=== PATIENT | female | born 1945 | race Caucasian/White ===

== ENCOUNTER 2017-01-20 18:32 | Emergency (ER) | payer OTHER ==
[~2017-01-20 18:32] MED LIST: ALLEGRA180 PO; ASAB PO; BIOTIN5 MG PO; CRESTOR10 PO; KLOR-CON 1010 MEQ PO; NORV5 PO; OS500+D PO; PREM.3B PO; PRIN20 PO; PROTONIX PO; THERGRANM PO; TOPXL50 PO; ZESTORETIC PO
== END 2017-01-20 19:44 | disposition home or self-care (01) ==
LOC: ER 18:32
DX: S09.90XA Unspecified injury of head, initial encounter (principal); S80.02XA Contusion of left knee, initial encounter; S80.01XA Contusion of right knee, initial encounter; S60.512A Abrasion of left hand, initial encounter; S60.812A Abrasion of left wrist, initial encounter; M54.2 Cervicalgia; I10 Essential (primary) hypertension; I25.2 Old myocardial infarction; Z98.61 Coronary angioplasty status; Z88.0 Allergy status to penicillin; Z88.5 Allergy status to narcotic agent; Z91.040 Latex allergy status; Z79.82 Long term (current) use of aspirin; Z79.899 Other long term (current) drug therapy; W19.XXXA Unspecified fall, initial encounter
CPT/HCPCS: 70450; 72125; 73130-LT; 73560-50; 90471; 90714; 99284; A9270-GY